=== PATIENT | male | born 1960 | race Caucasian/White ===

== ENCOUNTER 2022-02-15 07:54 | Day surgery (SDC) | payer BC ==
[2022-02-14 14:05] VITALS: BMI 29.2
[2022-02-15] MEDS ORDERED: Lidocaine 1% (PF) 30 ML VIAL ONE (08:33)
[2022-02-15] MEDS ORDERED: Oxymetazoline HCl 0.05% (30 ML BOT) ONE ×2 (08:33→08:37)
[2022-02-15] MEDS ORDERED: Bacitracin Zinc Ointment 30 gm TUBE ONE (08:33)
[2022-02-15] MEDS ORDERED: EPINEPHrine 1 MG/ML AMP ONE (08:33)
[2022-02-15] MEDS ORDERED: Fentanyl 250 MCG/5 ML VIAL ONE (08:48)
[2022-02-15] MEDS ORDERED: Midazolam HCl 2 mg/2 ml Vial ONE (09:29)
[2022-02-15] MEDS ORDERED: NEOSTIGMINE 3 MG/3 ML SYR 3 MG/3 ML SYRINGE ONE (09:36)
[2022-02-15] MEDS ORDERED: Glycopyrrolate 0.2 MG/ML 5 ML SYRINGE ONE (09:36)
[2022-02-15] MEDS ORDERED: Ondansetron PF 4 MG/2 ML Vial ONE (09:36)
[2022-02-15] MEDS ORDERED: Rocuronium Bromide 10 MG/ML (10ML VIAL) ONE (09:36)
[2022-02-15] MEDS ORDERED: PROPOFOL 200 MG/20 ML VIAL ONE (09:36)
[2022-02-15] MEDS ORDERED: Dexamethasone 20 MG/5 ML VIAL ONE (09:36)
[2022-02-15] MEDS ORDERED: Lidocaine 1% PF 5 ML VIAL ONE (09:36)
[2022-02-15] MEDS ORDERED: PHENYLEPHRINE-NS 100 MCG/ML 10 ML SYRINGE ONE (09:36)
[2022-02-15] MEDS ORDERED: Mineral Oil Sterile 10 ML VIAL ONE (10:55)
[2022-02-15] MEDS ORDERED: Fentanyl 100 MCG/2 ML VIAL ONE (12:52)
== END 2022-02-15 14:50 | disposition home or self-care (01) ==
LOC: SDC 07:54
PROVIDERS: ATTEND Student in an Organized Health Care Education/Training Program
PROC: 09SM0ZZ Reposition Nasal Septum, Open Approach (ICD-10-PCS; principal; 2022-02-15)
PROC: 0CJS8ZZ Inspection of Larynx, Via Natural or Artificial Opening Endoscopic (ICD-10-PCS; principal; 2022-02-15)
PROC: 09QK0ZZ Repair Nasal Mucosa and Soft Tissue, Open Approach (ICD-10-PCS; principal; 2022-02-15)
PROC: 09TL0ZZ Resection of Nasal Turbinate, Open Approach (ICD-10-PCS; principal; 2022-02-15)
PROC: 0CB1XZX Excision of Lower Lip, External Approach, Diagnostic (ICD-10-PCS; principal; 2022-02-15)
DX: J34.2 Deviated nasal septum (principal); J34.3 Hypertrophy of nasal turbinates; J34.89 Other specified disorders of nose and nasal sinuses; K13.0 Diseases of lips; G47.33 Obstructive sleep apnea (adult) (pediatric); I10 Essential (primary) hypertension; Z85.46 Personal history of malignant neoplasm of prostate; Z87.891 Personal history of nicotine dependence; Z79.84 Long term (current) use of oral hypoglycemic drugs; Z79.899 Other long term (current) drug therapy; Z88.5 Allergy status to narcotic agent
CPT/HCPCS: 88305; C1889; J0171; J1100; J2001; J2250; J2405; J2704; J3010

== ENCOUNTER 2022-03-18 19:00 | Outpatient (CLI) | payer BC | END 2022-03-18 19:01 | disposition home or self-care (01) | LOC: SLEEPLAB 19:00 | PROVIDERS: ATTEND Student in an Organized Health Care Education/Training Program | DX: G47.33 Obstructive sleep apnea (adult) (pediatric) (principal); R06.83 Snoring; G47.10 Hypersomnia, unspecified; I10 Essential (primary) hypertension; G47.00 Insomnia, unspecified | CPT/HCPCS: 95811 ==

== ENCOUNTER 2023-05-18 09:20 | Day surgery (SDC) | payer BC ==
[~2023-05-18 09:20] MED LIST: Fluorouracil 100 MG, Enoxaparin 25 MG, EPINEPHrine 0.3 MG, Dextrose 50% 3 ML in Ophthal... IRR SCH
[2023-05-18] MEDS ORDERED: Midazolam HCl 2 mg/2 ml Vial ONE (09:56)
[2023-05-18] MEDS ORDERED: PROPOFOL 20 ML ONE ×2 (09:56→10:47)
[2023-05-18] MEDS ORDERED: Lidocaine 1% PF 5 ML VIAL ONE ×2 (09:56→10:31)
[2023-05-18] MEDS ORDERED: PHENYLephrine 2.5% Ophth Soln 15 ml Bottle ONE (10:08)
[2023-05-18] MEDS ORDERED: Cyclopentolate 0.5% Opth Drops 15 ML BOT ONE (10:09)
[2023-05-18] MEDS ORDERED: Triamcinolone 40 MG/ML VIAL ONE (10:31)
[2023-05-18] MEDS ORDERED: Maxitrol 0.1% Opth Oint 3.5 GM TUBE ONE (10:31)
[2023-05-18] MEDS ORDERED: Bupivacaine 0.75% 10 ML VIAL ONE (10:31)
[2023-05-18] MEDS ORDERED: Enoxaparin 30 MG (0.3 mL) SYRINGE ONE (10:31)
[2023-05-18] MEDS ORDERED: CEFAZOLIN 1 GM VIAL ONE (10:31)
[2023-05-18] MEDS ORDERED: Lidocaine 4% PF 5 ML AMP ONE (10:31)
[2023-05-18] MEDS ORDERED: Dextrose 50% Abboject 50 ML SYRINGE ONE (10:31)
[2023-05-18] MEDS ORDERED: Ondansetron PF 4 MG/2 ML Vial ONE (11:20)
== END 2023-05-18 12:48 | disposition home or self-care (01) ==
LOC: SDC 09:20
PROVIDERS: ATTEND Ophthalmology Retina Specialist
PROC: 08T53ZZ Resection of Left Vitreous, Percutaneous Approach (ICD-10-PCS; principal; 2023-05-18)
DX: H33.002 Unspecified retinal detachment with retinal break, left eye (principal); Z88.5 Allergy status to narcotic agent
CPT/HCPCS: 67025; J0171; J0690; J1650; J2250; J2405; J2704; J3301; J3490; J7999; J9190

== ENCOUNTER 2023-09-19 16:00 | Outpatient (CLI) | payer BC | END 2023-09-19 16:01 | disposition home or self-care (01) | LOC: SLEEPLAB 16:00 | PROVIDERS: ATTEND Otolaryngology Otolaryngic Allergy | DX: G47.33 Obstructive sleep apnea (adult) (pediatric) (principal); R53.83 Other fatigue; R51.9 Headache, unspecified; G31.84 Mild cognitive impairment of uncertain or unknown etiology; R06.83 Snoring; E11.9 Type 2 diabetes mellitus without complications; H93.12 Tinnitus, left ear; H93.13 Tinnitus, bilateral | CPT/HCPCS: 95811 ==